=== PATIENT | male | born 1960 | race African-American/Black ===

== ENCOUNTER 2017-01-26 18:40 | Emergency (ER) | payer OTHER ==
[~2017-01-26] VITALS: Ht 185.4 cm; Wt 111.4 kg
[2017-01-26 20:48] LABS: CHLORIDE 108 mEq/L (99-109); POTASSIUM 4.5 mEq/L (3.7-5.4); SODIUM 139 mEq/L (136-147)
[2017-01-26 20:50] LABS: GLUCOSE 203 mg/dL (70-99)
[2017-01-26 20:51] LABS: ANION GAP 8 MEQ/L (2-14)
[2017-01-26 20:53] LABS: SERUM ETHYL ALCOHOL < 10 mg/dL
[2017-01-26 20:54] LABS: GFR ESTIMATE (CALCULATED) > 59 mL/min/
[2017-01-26 20:55] LABS: UREA NITROGEN (BUN) 19 mg/dL (9-23)
[2017-01-26 20:57] LABS: EOSINOPHIL (%) 2.3 % (0-5); EOSINOPHIL COUNT 0.2 K/uL (0-0.3); HEMATOCRIT 37.4 % (38.0-50.0); IMMATURE GRANULOCYTE (%) 0.3 % (0.0-0.7); INSTRUMENT ABS NEUTROPHIL CT 1.9 K/uL; LIPASE 20 U/L (1.0-51.0); LYMPHOCYTE COUNT 3.7 K/uL (1.0-2.8); MCH 22.4 PG (29.0-34.0); MCV 72.2 FL (86-99); MEAN PLAT.VOLUME 10.1 uM^3 (9.0-12.4); MONOCYTE (%) 9.2 % (3-12); MONOCYTE COUNT 0.6 K/uL (0-0.8); NEUTROPHIL (%) 30.1 % (45-76); NEUTROPHIL COUNT 1.9 K/uL (1.8-6.4); PLATELET COUNT 252 K/uL (156-360); RBC DIS.WIDTH-CV 15.2 % (11.8-14.6); RBC DIS.WIDTH-SD 39.2 % (39-53); RED BLOOD COUNT 5.18 M/uL (4.00-5.50); WHITE BLOOD COUNT 6.4 K/uL (4.1-10.2)
[2017-01-26 21:36] LABS: ADD MIUA? YES; BILIRUBIN NEGATIVE; BLOOD NEGATIVE; COLOR YELLOW ((YELLOW)); GLUCOSE (STRIP) >=500; KETONES 5; LEUKOCYTES NEGATIVE; NITRITE NEGATIVE; PROTEIN (STRIP) 30; SPECIFIC GRAVITY 1.027 (1.000-1.030); UROBILINOGEN 0.2 MG/DL (0.2-1.0)
[2017-01-26 21:46] LABS: BACTERIA NONE SEEN /HPF; EPITHELIAL CELLS RARE /HPF; HYALINE CASTS 0-5 /LPF; MUCUS TRACE /LPF; RED BLOOD CELLS 0-5 /HPF (0-5); UCUL ADDED? NO; WHITE BLOOD CELLS 0-5 /HPF (0-5)
[2017-01-26 22:01] LABS: ADD MEDTOX COMMENT Y; AMPHETAMINE NEGATIVE (500 ng/mL); BARBITURATES NEGATIVE (200 ng/mL); BENZODIAZEPINES NEGATIVE (150 ng/mL); COCAINE NEGATIVE (150 ng/mL); INTERNAL CONTROLS VALID? YES; METHADONE NEGATIVE (200 ng/mL); METHAMPHETAMINE NEGATIVE (500 ng/mL); OPIATES (MORPHINE) PRESUMPTIVE POSITIVE (100 ng/mL); OXYCODONE NEGATIVE (100 ng/mL); PHENCYCLIDINE NEGATIVE (25 ng/mL); PROPOXYPHENE NEGATIVE (300 ng/mL); THC CANNABINOIDS NEGATIVE (50 ng/mL); TRICYCLIC ANTIDEPRESSANTS PRESUMPTIVE POSITIVE (300 ng/mL)
[2017-01-26 22:37] LABS: OPIATES QUANTITATIVE VALUE 0 NG/ML
[2017-01-26 23:46] VITALS: BP 134/64
== END 2017-01-26 23:47 ==
LOC: EME 18:40
PROVIDERS: Emergency Medicine
DX: S06.0X0A Concussion without loss of consciousness, initial encounter (principal); H57.02 Anisocoria; W01.0XXA Fall on same level from slipping, tripping and stumbling without subsequent striking against object, initial encounter; Y92.149 Unspecified place in prison as the place of occurrence of the external cause; I10 Essential (primary) hypertension; E78.5 Hyperlipidemia, unspecified; E11.9 Type 2 diabetes mellitus without complications; Z87.891 Personal history of nicotine dependence
CPT/HCPCS: 70450; 80048; 81003; 83690; 84999; 85025; 86900; 86901; 99281; 99285; G0480

== ENCOUNTER 2017-04-17 15:38 | Emergency (ER) | payer OTHER ==
[~2017-04-17] VITALS: Ht 185.4 cm; Wt 114.2 kg
[2017-04-17 16:29] LABS: CHLORIDE 106 mEq/L (99-109); POTASSIUM 4.2 mEq/L (3.7-5.4); SODIUM 138 mEq/L (136-147)
[2017-04-17 16:30] LABS: GLUCOSE 197 mg/dL (70-99)
[2017-04-17 16:32] LABS: ANION GAP 11 MEQ/L (2-14)
[2017-04-17 16:34] LABS: GFR ESTIMATE (CALCULATED) > 59 mL/min/
[2017-04-17 16:35] LABS: UREA NITROGEN (BUN) 13 mg/dL (9-23)
[2017-04-17 16:38] LABS: EOSINOPHIL (%) 2.6 % (0-5); EOSINOPHIL COUNT 0.2 K/uL (0-0.3); HEMATOCRIT 36.4 % (38.0-50.0); IMMATURE GRANULOCYTE (%) 0.3 % (0.0-0.7); INSTRUMENT ABS NEUTROPHIL CT 1.6 K/uL; LYMPHOCYTE COUNT 4.1 K/uL (1.0-2.8); MCH 22.1 PG (29.0-34.0); MCHC 30.8 G/DL (30.0-36.0); MCV 71.9 FL (86-99); MEAN PLAT.VOLUME 9.7 uM^3 (9.0-12.4); MONOCYTE (%) 8.7 % (3-12); MONOCYTE COUNT 0.6 K/uL (0-0.8); NEUTROPHIL (%) 24.2 % (45-76); NEUTROPHIL COUNT 1.6 K/uL (1.8-6.4); PLATELET COUNT 284 K/uL (156-360); RBC DIS.WIDTH-CV 14.6 % (11.8-14.6); RBC DIS.WIDTH-SD 37.2 % (39-53); RED BLOOD COUNT 5.06 M/uL (4.00-5.50); WHITE BLOOD COUNT 6.5 K/uL (4.1-10.2)
[2017-04-17 16:45] LABS: TROP-I INTERPRETATION NEGATIVE; TROPONIN-I < 0.01 ng/mL (0.0-0.30)
[2017-04-17 20:52] VITALS: BP 126/77
== END 2017-04-17 21:06 | disposition short-term general hospital (02) ==
LOC: EME → EDBD 15:38 → EME 21:06
PROVIDERS: Personal Emergency Response Attendant
DX: R07.89 Other chest pain (principal); I10 Essential (primary) hypertension; E11.9 Type 2 diabetes mellitus without complications; B19.20 Unspecified viral hepatitis C without hepatic coma; K21.9 Gastro-esophageal reflux disease without esophagitis; J45.909 Unspecified asthma, uncomplicated; E78.5 Hyperlipidemia, unspecified; Z79.4 Long term (current) use of insulin; Z87.891 Personal history of nicotine dependence
CPT/HCPCS: 71020; 80048; 84484; 85025; 93005; 99281; 99285